=== PATIENT | female | born 1985 | race Caucasian/White ===

== ENCOUNTER 2023-03-14 15:22 | Emergency (ER) | payer MEDICAID, SELFPAY ==
[2023-03-14 15:23] VITALS: BP 160/120; PULSE 99; RESP 16; TEMP 37; O2SAT 99; BMI 27.4
[2023-03-14 15:30] VITALS: BP 165/129; PULSE 96; RESP 20; O2SAT 97
--- NOTE | 2023-03-14 15:30 | PC.NURSE ---
notified of pt hypertension at this time. pt does report taking daily hypertensives
--- NOTE | 2023-03-14 15:46 | [facility].EDGENADL ---
Discharge Plan Disposition Patient Disposition: Home, Self-Care Condition: Good Prescriptions Prescriptions: New penicillin V potassium 500 mg tablet 500 mg PO BID 10 Days Qty: 20 0RF ibuprofen 200 mg tablet 400 mg PO Q6H PRN (Reason: pain) Qty: 30 0RF No Action Nexplanon 68 mg implant subdermal labetalol 200 mg tablet 200 mg PO DAILY nifedipine 60 mg tablet extended release 24hr 60 mg PO DAILY mirtazapine 30 mg tablet 30 mg PO DAILY amoxicillin 500 mg tablet 500 mg PO BID 10 Days Qty: 20 0RF Referrals Follow up/Referrals: Provider,Referral, MD [Primary Care Provider] - See instructions Activity Restrictions/Add. Instructions Additional Instructions/Restrictions: You have been evaluated for dental pain, concern for a dental infection. Please take penicillin as prescribed. Ibuprofen or Tylenol for pain. Okay to use Orajel or topical benzocaine. Please follow-up with a dentist at soonest available. Return to the emergency department at once for any new or worsening symptoms, uncontrolled pain, fever, other concerns Clinical Impressions Clinical Impression: Dental caries, Toothache Instructions Patient Instructions: DI for Dental Pain, DI for Tooth Decay Discharge ED Provider: Aria Tai Adult HPI General Chief complaint: Dental/Oral Stated complaint: poss infected tooth, pain and swelling Time Seen by Provider: 03/14/23 15:31 Mode of Arrival: Ambulatory Source of Information: Patient Limitations: No Limitations Description of Symptoms (Recalled from ER Triage Doc. by RN): pt presents to the ED with right sided jaw pain x 3 weeks with a thobbing pain in her back right molar. on assessment the pt right jaw is obviosuly swollen and the effected tooth appears to be broken. pt reports the tooth has been broken for years but the swelling occureed over night last night. pt denies any fever or chills History of Present Illness HPI narrative: 37-year-old female presenting to the emergency department dental pain. Pain started this morning. It is described as sharp, constant. Is located on the right lower jaw. She feels like her cheek is swollen as well. She has a broken tooth, concern for infection. Says her tooth broke years ago. She has not seen a dentist in quite some time. No medications prior to arrival. No difficulty swallowing or breathing. No fevers, chills, nausea, vomiting. Related Data Home Medications Medication Instructions Recorded Confirmed etonogestrel 68 mg subdermal subdermal 12/01/22 12/01/22 implant (Nexplanon) labetalol 200 mg tablet 200 mg PO DAILY 12/01/22 12/01/22 mirtazapine 30 mg tablet 30 mg PO DAILY 12/01/22 12/01/22 nifedipine 60 mg tablet,extended 60 mg PO DAILY 12/01/22 12/01/22 release 24 hr Previous Rx's Medication Instructions Recorded amoxicillin 500 mg tablet 500 mg PO BID 10 days #20 tabs 12/01/22 ibuprofen 200 mg tablet 400 mg PO Q6H PRN pain #30 tabs 03/14/23 penicillin V potassium 500 mg 500 mg PO BID 10 days #20 tabs 03/14/23 tablet Allergies Allergy/AdvReac Type Severity Reaction Status Date / Time SULFA (SULFONAMIDE) Allergy Mild Uncoded 12/01/22 14:10 [facility] Disclaimer: The information contained in this section may have been updated after the patient was seen, as this information can be updated by other users. Medical History (Updated 03/14/23 @ 15:53 by Aria Tai DO) Closed head injury Social History (Updated 12/01/22 @ 15:21 by Amarilis Verde APRN) Smoking Status: Never smoker alcohol intake: never current occupational status: employed Travel in the last 8 weeks: None ROS Obtained: Yes All systems reviewed & no additional complaints except as documented Constitutional Constitutional: Denies chills, Denies fever(s) and Denies headache(s) ENT Ears, Nose, Mouth, and Throat: Reports dental pain, Reports facial pain, Denies headache(s), Denies neck pain and
[2023-03-14 16:02] VITALS: BP 165/97; PULSE 74; RESP 17; TEMP 36.7; O2SAT 99
== END 2023-03-14 16:02 | disposition home or self-care (01) ==
PROVIDERS: Emergency Provider Emergency Medicine
DX: R68.84 Jaw pain (principal); R22.0 Localized swelling, mass and lump, head; K02.9 Dental caries, unspecified
CPT/HCPCS: 99283; 99284